=== PATIENT | male | born 1950 | race Caucasian/White ===

== ENCOUNTER 2022-06-16 08:31 | Observation (INO) ==
--- NOTE | 2022-05-16 09:31 | PAT Medication Instructions ---
Medication Instructions Date of Service May 16, 2022 Home Medications aspirin 81 mg chewable tablet 81 mg PO QAM atorvastatin 10 mg tablet 10 mg PO QDL brimonidine 0.2 % eye drops 1 drp OPHTHALMIC (EYE) QDD multivitamin 1 tab PO QAM omega-3 fatty acids 1,000 mg PO QAM sertraline 25 mg tablet 25 mg PO QAM PreserVision AREDS-2 1 tab PO QAM vitamin B12 500 mcg-folic acid 400 mcg tablet 1 tab PO QAM STOP taking 2 weeks before surgery (or as soon as possible if surgery is within 2 weeks) omega-3 fatty acids 1,000 mg PO QAM PreserVision AREDS-2 1 tab PO QAM DO NOT take the morning of surgery multivitamin 1 tab PO QAM vitamin B12 500 mcg-folic acid 400 mcg tablet 1 tab PO QAM Take morning of surgery With a small sip of water, OTHERWISE NOTHING TO EAT OR DRINK AFTER MIDNIGHT: aspirin 81 mg chewable tablet 81 mg PO QAM (continue as normal unless told otherwise by surgeon) atorvastatin 10 mg tablet 10 mg PO QDL sertraline 25 mg tablet 25 mg PO QAM Take evening before surgery brimonidine 0.2 % eye drops 1 drp OPHTHALMIC (EYE) QDD Other Notes If you have any questions please call us at [phone] or [phone] or [phone] or [phone]
--- NOTE | 2022-05-20 12:11 | Anesthesiology Consultation ---
Date of Service May 20, 2022 Assessment & Plan (1) Encounter for pre-operative examination: - check coags STAT am DOS. - Case discussed in detail with Dr. Greenberg who advised to anesthesiologist discretion am DOS to pursue neuraxial anesthesia vs general anesthesia given multiple sclerosis. He advised repeat coags am DOS. - likely difficult intubation: Significantly limited cervical extension, TMD 3, small oral opening, jaw misalignment, and Mallampati Score 3. - COVID screening: Per assessment on 05/20/2022: Travel screen negative, no known COVID-19 positive contacts or current COVID-19 related symptoms in past 2 weeks. Pt vaccinated. Surgeon arranging preop COVID testing, scheduled 07/13/2022. Awaiting results. Chart Review Chart Review: Acceptable Risk for Surgery and Patient seen in Pre Admission Testing Teaching & Discussion Pre-Anesthesia Teaching/Discussion Notes: Instructed NPO after midnight before surgery, except medications with 15 cc of water. Medication instructions provided according to the PAT guidelines. History Surgery Operation Date: 06/16/22 10:35 Proposed Procedures p Left Total Hip Arthroplasty Anterior - Jerome Bucio DO Height/Weight Height: 5 ft 11 in Weight: 92.8 kg Allergies Allergy/AdvReac Type Severity Reaction Status Date / Time ciprofloxacin [From Cipro] AdvReac Intermediate Vomiting Verified 05/15/22 08:58 Medications Home Medications Medication Instructions Recorded Confirmed Last Taken aspirin 81 mg chewable tablet 81 mg PO QAM 05/15/22 05/15/22 Unknown atorvastatin 10 mg tablet 10 mg PO QDL 05/15/22 05/15/22 Unknown brimonidine 0.2 % eye drops 1 drp OPHTHALMIC (EYE) QDD 05/15/22 05/15/22 Unknown multivitamin 1 tab PO QAM 05/15/22 05/15/22 Unknown omega-3 fatty acids 1,000 mg PO QAM 05/15/22 05/15/22 Unknown sertraline 25 mg tablet 25 mg PO QAM 05/15/22 05/15/22 Unknown vit C 250 mg-vit E 90 mg-zinc 40 1 tab PO QAM 05/15/22 05/15/22 Unknown mg-copper 1 [id number] capsule (PreserVision AREDS-2) vitamin B12 500 mcg-folic acid 400 1 tab PO QAM 05/15/22 05/15/22 Unknown mcg tablet Past Medical History Medical History (Updated 05/22/22 @ 10:11 by Oanh Herrera PA-C) Ascending aorta enlargement 4.1 cm on 02/26/2021 echo Depression Difficult airway for intubation Significantly limited cervical extension, TMD 3, small oral opening, jaw misalignment, and Mallampati Score 3 Dysphagia s/p facial trauma several yrs ago, gradually improved over time, residual drooling with liquids per pt and Facial fracture due to fall fell walking large dog several yrs ago-pt and report Lefort I fracture, orbital fracture, nasal fracture and "small brain bleed" not requiring surgery, d/c after 1 day of observation at [facility] [place] trauma per pt and GERD (gastroesophageal reflux disease) occ. with certain foods, resolves with prn TUMS History of blood transfusion pt reports auto transfusion with surgery decades ago, denies h/o abnormal antibodies Hyperlipidemia Multiple sclerosis dx in 1994 - PCP manages, affects strength and balance occasionally, optic neuritis L eye per pt reports some change in imbalance with left hip pain; his indicates imbalance/strength fluctuate depending on the week; pt denies recent change or worsening; denies bowel or bladder dysfunction, denies dysphagia Nausea and vomiting after administration of anesthetic agent years ago, has done well after last few procedures, denies needing scop patch TBI (traumatic brain injury) fall several yrs ago, "small brain bleed" per pt and Patient denies h/o stroke, seizures, heart attack, heart failure, DM, HTN, or blood clots. Exercise / Class Metabolic Activity II 4-5 Yardwork/Stairs/Walk up hill (denies CP or SOB with 1 FOS) Past Surgical History Surgical History (Updated 05/20/22 @ 12:21 by Oanh Herrera PA-C) H/O of hemilaminectomy 1975 History of testicular surgery undescended s/p surgical intervention S/P cataract extraction bilat S/P colonoscopy S/P hip replacement 2002- right Past Anesthesia History No Hx of Anesthesia Complications and No Family Hx of Anesthesia Complications History of PONV History of PONV (denies needing scop patch) and Hx of Motion Sickness Social History Smoking Status: Never smoker Do You Dip or Chew Tobacco: No Hx Alcohol Use: No Hx Substance Use: No substance use type: does not use Review of Systems Snoring, denies witnessed apneas. Patient denies chest pain, shortness of breath, dyspnea on exertion, fever, chills, cough, wheezing, or palpitations. Physical Exam Vital Signs Vitals BP 137/80 P 65 TEMP 99.1 SP02 96% on RA RESP 17 Physical Limited cervical extension range of motion TMD 3 finger breadths Mallampati Score 3, small oral opening, jaw misalignment Dentition: intact, several missing teeth, several caps/crowns-none in front, removable bridge; denies chipped or loose teeth Lungs: normal respiratory effort. Clear throughout to auscultation, no adventitious breath sounds Cardiac: regular rate and rhythm, no murmurs noted Carotid arteries: negative bruit bilat Lab Results Anesthesia Preop Results Results Anesthesia Widget: WBC 7.71 K/uL (4.8-10.8) 05/20/22 Hgb 13.8 g/dL (14.0-18.0) L 05/20/22 Hct 41.0 % (42-52) L 05/20/22 Plt 209 K/uL (130-400) 05/20/22 Na 139 mmol/L (136-145) 05/20/22 K 4.0 mmol/L (3.5-5.1) 05/20/22 Cl 104 mmol/L (98-107) 05/20/22 CO2 24 mmol/L (21-32) 05/20/22 BUN 12 mg/dl (6-23) 05/20/22 Creat 0.76 mg/dl (0.6-1.4) 05/20/22 Glucose Level 98 mg/dl (70-99(Fasting)) 05/20/22 PT 14.4 Seconds (9.0-12.0) H 05/20/22 PTT 26.1 Seconds (21.0-31.0) 05/20/22 INR 1.4 (0.9-1.1) H 05/20/22 Blood Type O Positive 05/20/22 Antibody Screen NEGATIVE 05/20/22 Testing Electrocardiogram Date: 05/20/22 Sinus bradycardia, rate 59 bpm Chest X-Ray Date: 05/20/22 The cardiomediastinal and hilar silhouettes are within normal limits. No pneumothorax, pleural effusion, airspace consolidation or overt pulmonary edema. Spondylitic spurring of the spine. IMPRESSION: No acute process. Echocardiogram Date: 02/26/21 EF 55% Ascending aorta enlarged at 4.1 cm Mildly dilated LA Diastolic dysfunction Mild MR
--- NOTE | 2022-06-12 12:32 | History & Physical Report ---
Date of Service June 12, 2022 Assessment & Plan (1) Osteoarthritis of left hip: We will proceed with a left anterior total arthroplasty. Postoperatively he will be started on aspirin for DVT prophylaxis and kept overnight in the hospital for postoperative medical management. He plans to use energy physical therapy upon discharge. History of Present Illness Chief Complaint: Osteoarthritis of the left hip. Primary Care Provider: Jim Draper is a pleasant 71-year-old male with a history of MS. He has been dealing with chronic increasing left hip and groin pain. He has a lot of stiffness of his left hip. X-rays and clinical examination have been diagnostic for advanced osteoarthritis of the left hip. He has a history of a right hip replacement by another provider in 2001. After failing conservative treatment, he has elected proceed with a left anterior total hip arthroplasty.. Allergies Allergy/AdvReac Type Severity Reaction Status Date / Time ciprofloxacin [From Cipro] AdvReac Intermediate Vomiting Verified 05/15/22 08:58 Home Medications Medication Instructions Recorded Confirmed Type aspirin 81 mg chewable tablet 81 mg PO QAM 05/15/22 05/15/22 History atorvastatin 10 mg tablet 10 mg PO QDL 05/15/22 05/15/22 History brimonidine 0.2 % eye drops 1 drp ophthalmic (eye) QDD 05/15/22 05/15/22 History multivitamin 1 tab PO QAM 05/15/22 05/15/22 History omega-3 fatty acids 1,000 mg PO QAM 05/15/22 05/15/22 History sertraline 25 mg tablet 25 mg PO QAM 05/15/22 05/15/22 History vit C 250 mg-vit E 90 mg-zinc 40 1 tab PO QAM 05/15/22 05/15/22 History mg-copper 1 [id number] capsule (PreserVision AREDS-2) vitamin B12 500 mcg-folic acid 400 1 tab PO QAM 05/15/22 05/15/22 History mcg tablet Past Med/Surg History Medical History Ascending aorta enlargement 4.1 cm on 02/26/2021 echo Depression Difficult airway for intubation Significantly limited cervical extension, TMD 3, small oral opening, jaw misalignment, and Mallampati Score 3 Dysphagia s/p facial trauma several yrs ago, gradually improved over time, residual drooling with liquids per pt and Facial fracture due to fall fell walking large dog several yrs ago-pt and report Lefort I fracture, orbital fracture, nasal fracture and "small brain bleed" not requiring surgery, d/c after 1 day of observation at [facility] [place] trauma per pt and GERD (gastroesophageal reflux disease) occ. with certain foods, resolves with prn TUMS History of blood transfusion pt reports auto transfusion with surgery decades ago, denies h/o abnormal antibodies Hyperlipidemia Multiple sclerosis dx in 1994 - PCP manages, affects strength and balance occasionally, optic ne uritis L eye per pt reports some change in imbalance with left hip pain; his indicates imbalance/strength fluctuate depending on the week; pt denies recent change or worsening; denies bowel or bladder dysfunction, denies dysphagia Nausea and vomiting after administration of anesthetic agent years ago, has done well after last few procedures, denies needing scop patch TBI (traumatic brain injury) fall several yrs ago, "small brain bleed" per pt and Surgical History H/O of hemilaminectomy 1975 History of testicular surgery undescended s/p surgical intervention S/P cataract extraction bilat S/P colonoscopy S/P hip replacement 2002- right Social History Smoking Status: Never smoker Second Hand Exposure: No; Hx Alcohol Use: No Hx Substance Use: No Preferred Language: Belgian Communication Ability: Effective Bench Lay Out Technician Required: No Beliefs That Will Affect Care: None Current Living Situation: Spouse Feels Safe at Home: Yes Assistive Devices: Cane Review of Systems All systems reviewed & are unremarkable except as noted in HPI & below. Physical Exam On physical examination of the left hip, he has decreased range of motion. He has pain with forced internal and external rotation. All of his pains in his groin.. Constitutional WD/WN, vitals as above Eyes PERRL, conjunctivae normal, anicteric sclerae ENMT external ear and nose normal, oropharynx normal Neck trachea midline, no thyromegaly Respiratory normal respiratory effort, lungs clear to auscultation Cardiovascular RRR, no murmur, no edema Gastrointestinal (Abdomen) normal bowel sounds, soft, nontender, no hepatosplenomegaly Skin no rashes, warm and dry Psychiatric A+Ox3, euthymic affect Results & Data Results & Data Laboratory Results . Diagnostic Findings X-rays of the left hip show advanced osteoarthritis with joint space narrowing, osteophyte formation, and [id number] articulation. PG Care Time/CCT Total # of Minutes Spent Total Time Spent with Patient: Total time spent is greater than 50% in coordination of care (as documented) at patient's floor/unit and/or counseling patient: Coding Level of Care Code None Diagnoses Osteoarthritis of left hip M16.12
[~2022-06-16 08:31] MED LIST: ACETAMINOPHEN 500 MG TAB PO SCH; BUPIVACAINE 0.5 % 5 MG/1 ML PF 10ML VIAL ONE; FAMOTIDINE 20 MG TAB PO SCH; GABAPENTIN 300 MG CAP PO SCH; Ketorolac (*for OR use only*) 30 MG, dexAMETHasone 4 MG, KETAMINE HCL (**OR use only) 1... INFIL SCH; LR 500ML BOLUS, THEN 15ML/HR IV SCH; LR 60ML/HR IV SCH; MIDAZOLAM HCL 1 MG/ML 2ML VIAL ONE; PROPOFOL IV EMULSION 10 MG/ML 20 ML VIAL IV ONE; TRANEXAMIC ACID 1,000 MG **IV Intra-op IV SCH; TRANEXAMIC ACID 1,000 MG **IV Pre-op IV SCH; ceFAZolin 2000MG 2,000 MG/15 ML SYR IV SCH; dexAMETHasone 4 MG TAB PO SCH; fentaNYL citrate 100 MCG/2 ML VIAL ONE
--- NOTE | 2022-06-16 09:07 | History & Physical Bridge Note ---
Date of Service June 16, 2022 History & Physical Bridge Note I have examined the patient, reviewed the History & Physical and in the interval since the performance of the History & Physical I have noted the following changes of clinical significance: no changes noted
[2022-06-16 09:12] LABS: INR 1.4 (0.9-1.1); Partial Thromboplastin Time 26.4 Seconds (21.0-31.0); Prothrombin Time 14.9 Seconds (9.0-12.0)
[2022-06-16] MEDS ORDERED: ePHEDrine sulfate 50 MG/ML AMP IV PRN (10:02)
[2022-06-16] MEDS ORDERED: ONDANSETRON INJ 2 MG/ML 2 ML VIAL IV PRN (10:02)
[2022-06-16] MEDS ORDERED: ATROPINE SULFATE 0.1 MG/ML 10ML SYR IV PRN (10:02)
[2022-06-16] MEDS ORDERED: fentaNYL citrate 100 MCG/2 ML VIAL IV PRN (10:02)
[2022-06-16] MEDS ORDERED: ORTHO JOINT ANESTHETIC ONE (10:33)
[2022-06-16] MEDS ORDERED: DEXAMETHASONE SOD INJ 4 MG/ML VIAL ONE (11:15)
[2022-06-16] MEDS ORDERED: ONDANSETRON INJ 2 MG/ML 2 ML VIAL ONE (11:15)
[2022-06-16] MEDS ORDERED: fentaNYL citrate 100 MCG/2 ML VIAL ONE ×2 (11:19→11:25)
[2022-06-16] MEDS ORDERED: HYDROmorphone INJ 2 MG/ML SYR/VIAL ONE (11:52)
--- NOTE | 2022-06-16 12:28 | Operative Report ---
PG Post Operative Report Pre & Post Diagnosis Operation Date: 06/16/22 10:40 Pre-Op Diagnosis: Left Hip Osteoarthritis Post-Op Diagnosis: Left Hip Osteoarthritis I identified the patient and participated in the time-out.: Yes Procedure Operation Date: 06/16/22 10:40 Actual Procedures p Left Anterior Total Hip Arthroplasty(Left) - Jerome Bucio DO Surgeon Jerome Bucio DO Window Framer Jerome Mendoza PA-C Estimated Blood Loss 300 Findings Consistent with Post-Op Diagnosis Specimens Left femoral head Description of Procedure Implants used I used a ZimmerBiomet total hip arthroplasty system with a size 6 standard Avenir Complete stem, a 58 mm G7 cup with a 25mm screw, an E1 polyethylene liner, a 40 mm ceramic head with a 0 neck. Baron arrived at the hospital for the above procedure. He was seen in the preoperative holding area and the operative extremity was identified and signed. He was given a preoperative antibiotic, and TXA. He was then taken back to the operating room and laid on the table in the supine position. He was given general anesthesia. The operative leg was secured to a Puristst leg positioner. The hip was then prepped and draped in sterile fashion. A timeout was done and the patient and the operative extremity was properly identified. An anterior approach was used. Dissection was taken down through the fascia and the tensor muscle belly was retracted laterally and the rectus was retracted medially. The circumflex vessels were identified and ligated. The capsule was then incised and tagged for later repair. The femoral neck was then cut and the femoral head was removed. The acetabulum was exposed. Time was spent doing a complete circumferential labral release. Sequential reaming of the acetabulum up to a size 57 reamer was done. Final reamings were done under fluoroscopy to ensure appropriate version. A Biomet 58 mm G7 cup was then impacted into place. A single 25 mm screw was placed. The E1 polyethylene liner was then snapped into place. Surrounding soft tissues were then injected with 100 cc of an orthopedic pain control cocktail. The proximal femur was then exposed. Sequential broaching up to a size 6 broach was done. Off that broach a size 40 head with a 0 neck was trialed. The hip was reduced and fluoroscopic images showed anatomic alignment of the implants in acceptable length. The broach was removed. The final size 6 standard Avenir Complete stem was then impacted into place. A ceramic 40 mm head with a 0 neck was then impacted onto the stem and the hip was reduced. Final fluoroscopic images showed anatomic alignment of the hip. The capsule was then closed with #1 Vicryl suture. A dilute betadyne lavage was then done for 3 minutes. The joint was then irrigated with normal saline solution. The fascia was closed with #1 PDS suture. Skin was closed with 2-0 Vicryl, klaus, and a Silverlon dressing. He was then transferred to a hospital bed and taken to the post anesthesia care unit in stable condition. He tolerated the procedure well. Jerome Mendoza PA-C, was present for the entire procedure. He was critical for idalmis ent positioning, prepping, draping, retraction exposure, wound closure and application of sterile dressing. I attest to the content of the Intraoperative Record and any orders documented therein. Any exceptions are noted below.
--- NOTE | 2022-06-16 12:56 | Fluoroscopy Report ---
FL hip LT 1V CLINICAL HISTORY: Left anterior hip arthroplasty. COMPARISON STUDY: None. FLUOROSCOPY TIME: 14 seconds. FINDINGS: 2 fluoroscopic spot images of the left hip demonstrate a left total hip arthroplasty. The h ardware appears intact. No fracture or dislocation. IMPRESSION: Fluoroscopic assistance provided for left total hip arthroplasty. ACT 112: Negative or not required by law. Electronically signed by: Eduardo Ryder M.D. 06/16/2022 12:54 PM
--- NOTE | 2022-06-16 14:01 | XRay Report ---
XR hip 1V LT w pelvis HISTORY: 72 years-old Male IN PACU - A/P PELVIS and LATERAL HIP left hip total joint arthroplasty COMPARISON: 04/22/2022 TECHNIQUE: AP view of the pelvis with crosstable lateral view of the left hip FINDINGS: Unremarkable appearance of the right hip total joint arthroplasty. Left hip total joint arthroplasty is in satisfactory alignment. No acute fracture or unexpected opaque foreign body. Lateral left hip s kin klaus are present along with expected postoperative soft tissue swelling with deep tissue air. IMPRESSION: Left hip total joint arthroplasty with expected postoperative changes. ACT 112: Negative or not required by law. The above report was generated using voice recognition software. It may contain grammatical, syntax o r spelling errors. Electronically signed by: Abelardo Linton M.D. 06/16/2022 1:59 PM
[2022-06-16] MEDS ORDERED: NALOXONE HCL 0.4 MG/1 ML VIAL/CARP ONE (14:11)
[2022-06-16] MEDS ORDERED: MAGNESIUM HYDROXIDE SUSP 30 ML UDC PO PRN (15:54)
[2022-06-16] MEDS ORDERED: METOCLOPRAMIDE HCL INJ 5 MG/ML 2 ML VIAL IV PRN (15:54)
[2022-06-16] MEDS ORDERED: bisacodyL 10 MG SUPP PR PRN (15:54)
[2022-06-16] MEDS ORDERED: NALOXONE HCL 0.4 MG/1 ML VIAL/CARP IV PRN (15:54)
[2022-06-16] MEDS ORDERED: oxyCODONE HCL IR 5 MG TAB (IMMEDIATE RELEASE) PO PRN (15:54)
[2022-06-16] MEDS ORDERED: HYDROmorphone INJ 0.5 MG/0.5 ML SYR IV PRN (15:54)
[2022-06-16] MEDS ORDERED: BRIMONIDINE TARTRATE 0.2% 5ML OP SCH (16:30)
--- NOTE | 2022-06-16 16:45 | Anesthesiology Progress Note ---
Date of Service June 16, 2022 Anesthesia Post Procedure Vital Signs Vital Signs: Temp Pulse Pulse Resp BP BP Pulse Ox 06/16/22 16:24 36.3 C L 100 H 16 128/82 95 06/16/22 15:25 97 H 16 113/73 94 06/16/22 15:15 36.3 C L 95 H 16 125/82 94 06/16/22 15:05 94 H 16 130/81 95 06/16/22 14:55 88 14 132/74 94 06/16/22 14:45 91 H 17 136/93 94 06/16/22 14:35 88 15 151/82 H 93 06/16/22 14:25 91 H 13 153/89 H 93 06/16/22 14:15 92 H 17 128/65 92 06/16/22 14:05 36.3 C L 99 H 16 152/95 H 92 06/16/22 13:55 99 H 13 150/90 H 91 06/16/22 13:45 107 H 14 150/90 H 91 06/16/22 13:35 114 H 22 142/91 H 92 06/16/22 13:25 105 H 13 103/69 96 06/16/22 13:15 106 H 12 108/71 94 06/16/22 13:05 101 H 14 130/78 92 06/16/22 12:55 104 H 10 L 119/84 91 06/16/22 12:46 36.1 C L 106 H 14 114/66 92 06/16/22 09:04 37.3 C 80 20 135/86 96 O2 Del Method O2 Flow Rate 06/16/22 16:24 Room Air 2 06/16/22 15:25 Nasal Cannula 3 06/16/22 15:15 Nasal Cannula 3 06/16/22 15:05 Nasal Cannula 3 06/16/22 14:55 Nasal Cannula 3 06/16/22 14:45 Nasal Cannula 3 06/16/22 14:35 Oxymask 3 06/16/22 14:25 Oxymask 6 06/16/22 14:15 Oxymask 8 06/16/22 14:05 Oxymask 8 06/16/22 13:55 Oxymask 8 06/16/22 13:45 Oxymask 8 06/16/22 13:35 Oxymask 10 06/16/22 13:25 Oxymask 10 06/16/22 13:15 Oxymask 06/16/22 13:05 Oxymask 06/16/22 12:55 Oxymask 06/16/22 12:46 Oxymask 06/16/22 09:04 Room Air Pain Intensity Left Hip: Pain Intensity: 3 Transfer of Care Handoff Completed per policy Notes Mental Status: alert / awake / arousable and participated in evaluation Patient Amnestic to Procedure: Yes Nausea / Vomiting: adequately controlled Pain: adequately controlled Airway Patency, RR, SpO2: stable & adequate BP & HR: stable & adequate Hydration State: stable & adequate Anesthetic Complications: no major complications apparent
[2022-06-16] MEDS: ceFAZolin 2000MG 2,000 MG/15 ML SYR IV SCH (18:17)
[2022-06-16] MEDS: KETOROLAC TROMETHAMINE 15 MG/ML VIAL IV SCH ×2 (18:29→21:44)
[2022-06-16] MEDS: SODIUM CHLORIDE 0.9% 1000ML 1,000 ML IV SCH (18:33)
[2022-06-16] MEDS: ACETAMINOPHEN 500 MG TAB PO SCH ×2 (19:47→21:44)
[2022-06-16] MEDS ORDERED: SENNA 8.6 MG TAB PO SCH (21:00)
[2022-06-16] MEDS: DOCUSATE SODIUM 100 MG CAP PO SCH (21:42)
[2022-06-16] MEDS: ONDANSETRON INJ 2 MG/ML 2 ML VIAL IV PRN (21:42)
[2022-06-16] MEDS: ASPIRIN 81 MG ECTAB PO SCH (21:43)
[2022-06-17] MEDS: SODIUM CHLORIDE 0.9% 1000ML 1,000 ML IV SCH (03:15)
[2022-06-17] MEDS: ceFAZolin 2000MG 2,000 MG/15 ML SYR IV SCH (03:17)
[2022-06-17] MEDS: KETOROLAC TROMETHAMINE 15 MG/ML VIAL IV SCH ×2 (03:18→09:51)
[2022-06-17] MEDS: ACETAMINOPHEN 500 MG TAB PO SCH (06:17)
--- NOTE | 2022-06-17 07:14 | Orthopedic Progress Note ---
Date of Service June 17, 2022 Assessment & Plan (1) Status post left hip replacement: Overall is doing well. Is not having much pain in the left hip. He will be seen by physical therapy today for ambulation and range of motion exercises. He is on aspirin for DVT prophylaxis. He can be discharged home later today. He will follow-up with orthopedics in 2 weeks. José Draper was seen and examined at bedside this morning. Overall is doing very well. Is not having much pain in the left hip. He has not been out of bed yet. He has no complaints.. Review of Systems All systems reviewed & are unremarkable except as noted in HPI & below. Physical Exam On physical examination of the left hip, the dressing is clean and dry. His leg is out in full extension. He has active dorsiflexion plantarflexion of his left ankle.. Results & Data Results & Data Laboratory Results . Diagnostic Findings Postoperative x-rays of the left hip show the prosthesis to be in anatomic alignment without any evidence of fracture, desiccation, or loosening. PG Care Time/CCT Total # of Minutes Spent Total Time Spent with Patient: Total time spent is greater than 50% in coordination of care (as documented) at patient's floor/unit and/or counseling patient: Coding Level of Care Code 73940 Post Operative Follow-Up Diagnoses Status post left hip replacement Z96.642
--- NOTE | 2022-06-17 07:16 | Discharge Summary ---
Date of Service June 17, 2022 Admission HPI (Per Admitting) Baron is a pleasant 71-year-old male with a history of MS. He has been dealing with chronic increasing left hip and groin pain. He has a lot of stiffness of his left hip. X-rays and clinical examination have been diagnostic for advanced osteoarthritis of the left hip. He has a history of a right hip replacement by another provider in 2001. After failing conservative treatment, he has elected proceed with a left anterior total hip arthroplasty.. Admission Exam (Per Admitting) On physical examination of the left hip, he has decreased range of motion. He has pain with forced internal and external rotation. All of his pains in his groin.. Principal Diagnosis Same as "Discharge Diagnosis" noted below under Discharge Instructions. Discharge Exam On physical examination of the left hip, the dressing is clean and dry. His leg is out in full extension. He has active dorsiflexion plantarflexion of his left ankle.. Discharge Data Procedures Performed Operation Date: 06/16/22 10:40 Actual Procedures p Left Anterior Total Hip Arthroplasty(Left) - Jerome Bucio DO Ordered Studies 06/16/22 10:40 FL hip LT 1V Routine Hospital Course (1) Status post left hip replacement: On June 16, 2022 Baron arrived at [facility] and underwent a left hip replacement that complication. He had a general anesthetic. Postoperatively he was started on aspirin for DVT prophylaxis and transferred to the general orthopedic floors. His hospital course was uneventful. On postop day #1, his vital signs are stable and his pain was well controlled. He was able to participate well with physical therapy doing ambulation and range of mot ion exercises. He was then discharged home. He will follow-up with orthopedics in 2 weeks. PG Care Time/CCT Total # of Minutes Spent Total Time Spent with Patient: Total time spent is greater than 50% in coordination of care (as documented) at patient's floor/unit and/or counseling patient: Discharge Plan Discharge Items Patient Disposition: Home - Home Health Services Reason For Visit: Left Hip Osteoarthritis Discharge Diagnosis: Left hip replacement Activity: Per Instructions section Non-emergency contact: Surgeon Call non-emergency contact if: your wound has increased redness and your wound has increased drainage Follow-up/Referrals: Jim Garcia [Primary Care Provider] - Diet: Regular Addtl Attending Provider Instructions: Activity and Therapy Recommendations: * If you are using [facility] then therapy will be provided at your home until they feel you have accomplished all of your goals. * If you are using [facility] then Physical Therapy will be provided until they feel you are ready to start Outpatient Physical Therapy. * If you are not using home therapy then Outpatient Physical Therapy should start about 3-5 days from your day of surgery. Therapy will last about 6-10 weeks * You were shown a series of exercises in the hospital. Do these exercises three times each day including the exercises you were shown in physical therapy. * Get up and walk several times each day.~ For the first four weeks, try not to stand or walk for more than one hour at a time. If you do stand or walk for more than one hour, you will not hurt anything, but your leg will likely swell.~~ * As you feel comfortable, you may change from the walker or crutches to a cane and~then to independent walking. Medications: * Narcotic You will likely be sent home from the hospital with a prescription for the narcotic pain medication that worked best throughout your stay. * Aspirin Most patients will be required to take Aspirin 81mg twice a day for 6 weeks after surgery. This is obtained [id number] and a prescription is not necessary. * Other medications may be prescribed for specific circumstances. If you have any questions, please call the office at . * Resume previous home medications unless otherwise instructed TEDs/Elastic Stockings: The white elastic stockings help limit swelling and prevent blood clots from forming in your legs. The more you wear them, the more they work. Wear them for six weeks. Dressing Care: Leave the Silverlon dressing in place for 7 days. After 7 days you may remove the dressing. If the incision is not draining then you may leave the klaus open to air. If there is a little bit of drainage or if the klaus are getting stuck on your clothing then cover the incision with a dry dressing. The klaus will be removed at your 2 week follow-up appointment. Showering: You may shower with the Silverlon dressing in place. Do not let the shower spray hit the dressing directly. Pat the Silverlon dressing dry. If the dressing becomes wet underneath, then simply remove the dressing. Keep the incision dry until you are 7 days out from the day of surgery. After 7 days you may remove the Silverlon dressing and shower with the klaus exposed. Let soapy water run over the klaus and pat them dry. Do not scrub or soak the incision. Things To Watch For: * Drainage from the incision site that occurs more than one week after your surgery. * Increased redness at the incision site. * Fever above 102 degrees Fahrenheit. * Unusual chest pain or shortness of breath. * Call [facility] at with any of the above problems Follow-Up Visit: Follow-up with Dr. Bucio's PA (Jerome Mendoza) 2-3 weeks after your day of surgery. He will remove your klaus and answer any questions. If you have any additional questions or concerns, Dr Bucio is usually in the office at the same time and will be available An appointment was probably scheduled when you signed-up for surgery in the office. If you have any questions call Office Instructions: More detailed instructions as well as Frequently Asked Questions were provided in a folder by our office when you signed-up for surgery. Please review these instructions when you get home. If you have any further questions or concerns, please feel free to call the office at [phone] Pending Studies at Discharge: No Stand-Alone Forms: My [facility] Medications and DC Order Prescriptions: New oxycodone-acetaminophen 5-325 mg tablet 1 tab PO Q6H PRN (Reason: pain) Qty: 30 0RF Continued multivitamin [Men's Multi-Vitamin] Tablet 1 tab PO QAM atorvastatin 10 mg Tablet 10 mg PO QDL brimonidine [Alphagan] 0.2 % Drops 1 drp OPHTHALMIC (EYE) QDD Rx Instructions: BOTH EYES sertraline 25 mg Tablet 25 mg PO QAM Fish Oil Capsule 1,000 mg PO QAM vitamin [id number]-[id number] acid 500-400 mcg Tablet 1 tab PO QAM PreserVision AREDS-2 250-90-40-1 mg Capsule 1 tab PO QAM Changed aspirin 81 mg Tablet,Chewable 81 mg PO BID 42 Days Qty: 0 0RF Discharge Orders: Discharge Order (Routine); Ordered 06/17/22 Ordered By: Jerome Bucio Admission Data Admit Date/Time: 06/16/22 12:48 Attending Provider: Jerome Bucio Admit Provider: Jerome Bucio Primary Care Provider: Jim Garcia
[2022-06-17] MEDS ORDERED: dexAMETHasone 4 MG TAB PO SCH (08:00)
[2022-06-17] MEDS: ASPIRIN 81 MG ECTAB PO SCH (08:54)
[2022-06-17] MEDS: DOCUSATE SODIUM 100 MG CAP PO SCH (08:55)
[2022-06-17] MEDS ORDERED: MULTIVITAMIN TAB PO SCH (09:00)
[2022-06-17] MEDS ORDERED: SERTRALINE HCL 50 MG TABLET PO SCH (09:00)
[2022-06-17] MEDS ORDERED: NON-FORMULARY MEDICATION (Vit C,E-Zn-Coppr-Lutein-Zeaxan [Preservision Areds-2] 250-90-40- PO SCH (09:00)
[2022-06-17] MEDS ORDERED: ATORVASTATIN 10 MG TAB PO SCH (11:30)
[2022-06-17] MEDS: ONDANSETRON INJ 2 MG/ML 2 ML VIAL IV PRN (11:58)
== END 2022-06-17 12:09 | disposition home health service (06) ==
LOC: ASU 08:31 → 3N 08:31